=== PATIENT | female | born 1935 | race Caucasian/White ===

== ENCOUNTER 2018-12-02 10:38 | Emergency (ER) | payer MEDICARE, OTHER ==
[~2018-12-02] VITALS: Ht 157.5 cm; Wt 46.7 kg
[~2018-12-02 10:38] MED LIST: TENORMIN25 MG PO; TYLENOL EXTRA500 MG PO; VALIUM5 M1 PO
[2018-12-02] MEDS ORDERED: ATORVASTATIN CA10 MG ORAL (10:48)
[2018-12-02] MEDS ORDERED: VALIUM5 MG ORAL (10:48)
[2018-12-02 10:50] VITALS: BP 133/85
--- NOTE | 2018-12-02 10:52 | NUR ---
ED Nurse Note: pt walked in to ED due to burning pain on right lower leg for couple days. redness noted. pt did not let nurse touch the site due to pain. per pt, had similar sx on left leg and old healed blister noted. ambulatory with steady gait. per pt, "my doctor told me I need US, I might have blood clot." AAO x4. respirations even and non-labored noted. skin warm to touch. no open wound noted. will wait for the further order.
--- NOTE | 2018-12-02 11:09 | Emergency Room Report ---
History of Present Illness General Chief Complaint: General Complaint Source: Patient Present Illness HPI The patient recently finished a week's course of Bactrim with improvement of infection and blister L leg a week ago. Now has bites on back and also R lower leg with redness and soreness. No fever or chills. Her doctor told her she has a blood clot over the phone. She denies any calf pain at this time. There is itching and redness with tenderness in the front part of her leg just proximal to the ankle. She rates the pain 8/10 localized to the area of the redness without radiation. No edema or hemoptysis. No chest pain. States tetanus long time ago and will not update. She states she has multiple allergies. She is also concerned about the dosing of the Bactrim. Has rash chest. States no itching or pain there. 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 No sore throat, chest pain, palpitations, nausea, vomiting, diarrhea, dysuria, abdominal pain, shortness of breath, visual changes, headache. She has quite a bit of anxiety about possible blood clot. Allergies: Coded Allergies: CEPHALEXIN MONOHYDRATE (Verified Allergy, Intermediate, Rash, 04/21/12) PENICILLINS (Verified Allergy, Intermediate, Rash, 04/21/12) Patient History Past Medical History: see triage record Social History: Denies: smoking, alcohol use, drug use Social History Narrative lives by self. 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 Reviewed Nursing Documentation: PMH: Agreed; PSxH: Agreed Nursing Documentation-PMH Hx Cardiac Problems: Yes - HYPERLIPIDEMIA,OA Hx Hypertension: Yes Hx Cancer: Yes - SKIN Hx Gastrointestinal Problems: Yes - IBS, ACID REFLUX Hx Neurological Problems: Yes Hx Peripheral Neuropathy: Yes Review of Systems All Other Systems: negative except mentioned in HPI Physical Exam Vital Signs Date Time Temp Pulse Resp B/P (MAP) Pulse Ox O2 Delivery O2 Flow Rate FiO2 12/02/18 10:41 97.9 68 20 133/85 (101) 96 Room Air Sp02 EP Interpretation: reviewed, normal General Appearance: well appearing, no apparent distress, GCS 15, non-toxic, thin Head: normocephalic Eyes: bilateral eye normal inspection, bilateral eye PERRL ENT: moist mucus membranes Cardiovascular #1: regular rate, rhythm Cardiovascular #2: 2+ radial (R), 2+ dorsalis pedis (R) Gastrointestinal: normal inspection, non tender Musculoskeletal: gait/station normal, normal range of motion, no calf tenderness, pelvis stable Neurologic: alert, distal neuro normal, oriented - X2 Psychiatric: anxious, other - asking repetative questions Skin: other - erythema R lower anterior ankle/tibia area. No fluctuance. also dried florence L lateral lower leg. Small excoriation L medial leg with minimal to nil bleeding. Medical Decision Making Diagnostic Impression: Primary Impression: Cellulitis Qualified Codes: L03.115 - Cellulitis of right lower limb Additional Impressions: Tinea versicolor Anxiety ER Course Patient presents with bug bites and erythema in the right lower leg. She recently was treated for cellulitis but has been off antibiotics for 1 week. It was the opposite leg that was infected at that time. Differential includes cellulitis, DVT, bug bite reaction amongst others. Based on her clinical exam this appears to be a cellulitis. Clinically there is no DVT at this time. No labs indicated. Antibiotics are indicated. Tetanus was discussed with the patient but she still refuses. Patient anxious about dose of Bactrim - wants single strength. Prescription changed. When ambulating out of ED states the rash is more red at this time. Advised that this is because she is standing. Also stressed need to elevate the leg and foot. The patient called and reported stating itching of rash. Second call reporting stating burning of rash. Attempt to reassure patient that medicines should cure the infection. No medical emergency at this time. Patient stable for outpatient observation and treatment. Last Vital Signs Date Time Temp Pulse Resp B/P (MAP) Pulse Ox O2 Delivery O2 Flow Rate FiO2 12/02/18 11:25 97.9 68 20 133/85 96 Room Air Status: improved Disposition: HOME, SELF-CARE Condition: Improved Scripts Trimethoprim/Sulfamethoxazole (Bactrim 400-80 mg Tablet) 1 Each Tablet 1 TAB ORAL TWICE A DAY, #14 TAB Prov: Chip Medina MD 12/02/18 Bacitracin (Bacitracin) 28.4 Gm Oint...g. 1 APPLIC TOPIC BID, #20 GM Prov: Chip Medina MD 12/02/18 Chip Medina MD Dec 02, 2018 11:09
[2018-12-02] MEDS ORDERED: BACITRACIN15 GM TOPIC (11:12)
[2018-12-02] MEDS ORDERED: BACTRIM DS TAB1 EAC1 ORAL (11:12)
[2018-12-02] MEDS ORDERED: Neosporin Oint Ud Pkt TOPIC ONE (11:15)
[2018-12-02] MEDS ORDERED: Bactrim-DS 1 tab ORAL ONE (11:15)
[2018-12-02] MEDS ORDERED: BACTRIM DOUBLE S1 E1 ORAL (11:20)
--- NOTE | 2018-12-02 11:24 | NUR ---
ER DISCHARGE NOTE: Patient is cleared to be discharged per ERMD, pt is aox4, on room air, with stable vital signs. pt was given dc and prescription instructions, pt was able to verbalize understanding, pt id band removed without complications. pt is able to ambulate with steady gait. pt took all belongings.
[2018-12-02 11:25] VITALS: BP 133/85
== END 2018-12-02 11:25 | disposition home or self-care (01) ==
LOC: EMR 11:00
DX: L03.115 Cellulitis of right lower limb (principal); B36.0 Pityriasis versicolor; F41.9 Anxiety disorder, unspecified; Z88.0 Allergy status to penicillin; Z88.8 Allergy status to other drugs, medicaments and biological substances; E78.5 Hyperlipidemia, unspecified; M19.90 Unspecified osteoarthritis, unspecified site; I10 Essential (primary) hypertension; Z85.828 Personal history of other malignant neoplasm of skin; K21.9 Gastro-esophageal reflux disease without esophagitis; G62.9 Polyneuropathy, unspecified
CPT/HCPCS: 99282